=== PATIENT | male | born 1985 | race Caucasian/White ===

== ENCOUNTER 2018-05-19 00:42 | Emergency (ER) | payer BC ==
[~2018-05-19] VITALS: Ht 185.4 cm; Wt 71.2 kg
[~2018-05-19 00:42] MED LIST: HYDROCODONE BIT1 T11 PO; MOTRIN800 MG PO; PEN-VEE K500 MG PO; TYLENOL W/CODEI1 TA2 PO
[2018-05-19] MEDS ORDERED: PENICILLIN-VK500 M1 PO (00:54)
[2018-05-19] MEDS ORDERED: ANAPROX DS550 MG PO (00:54)
== END 2018-05-19 01:10 | disposition home or self-care (01) ==
LOC: ED 00:42
DX: K02.9 Dental caries, unspecified (principal)